=== PATIENT | female | born 1985 | race Two or more races ===

== ENCOUNTER 2022-05-24 10:36 | Emergency (ER) | payer SELFPAY ==
[~2022-05-24] VITALS: Ht 154.9 cm; Wt 54.0 kg
[2022-05-24 10:39] VITALS: BP 135/95
[2022-05-24] MEDS ORDERED: LORAZEPAM 0.5MG TABLET PO NR (13:15)
[2022-05-24 13:29] LABS: CLARITY URINE CLEAR (CLEAR); COLOR URINE YELLOW (YELLOW); KETONES URINE 1+ (NEGATIVE); LEUKOCYTE ESTERASE URINE NEGATIVE (NEGATIVE); NITRITE URINE NEGATIVE (NEGATIVE); OCCULT BLOOD URINE NEGATIVE (NEGATIVE); PH URINE 6.5 (4.5-8.0); PROTEIN URINE NEGATIVE (NEGATIVE); SPECIFIC GRAVITY URINE 1.002 (1.005-1.030); UROBILINOGEN URINE 0.2 E.U./dL (0.2-1.0)
== END 2022-05-24 14:09 | disposition left against medical advice (07) ==
LOC: ER 10:36
DX: F41.9 Anxiety disorder, unspecified (principal); G47.00 Insomnia, unspecified; F32.A Depression, unspecified; F43.10 Post-traumatic stress disorder, unspecified
CPT/HCPCS: 81003; 81025; 99283